=== PATIENT | female | born 1990 | race African-American/Black ===

== ENCOUNTER 2019-03-20 18:09 | Emergency (ER) | payer MEDICAID ==
[~2019-03-20] VITALS: Ht 162.6 cm; Wt 92.6 kg
[2019-03-20] MEDS ORDERED: ONDANSETRON 4MG ODT PO ONE (22:00)
[2019-03-20] MEDS ORDERED: ACETAMINOPHEN 325MG TABLET PO ONE (22:00)
[2019-03-20 23:29] LABS: CHLORIDE 105 mEq/L (98-107)
[2019-03-20 23:32] LABS: BASOPHILS % 0.6 % (0.0-2.0); EOSINOPHILS % 1.2 % (0.0-5.0); HEMOGLOBIN. 12.3 g/dL (12.0-16.0); LYMPHOCYTES % 15.8 % (20.0-50.0); MEAN CORPUSCULAR HEMOGLOBIN 30.7 pg (28.0-32.0); MEAN CORPUSCULAR VOLUME 89.5 fL (81.0-99.0); MEAN PLATELET VOLUME 9.1 fl (7.4-10.4); MONOCYTES % 6.9 % (2.0-8.0); NEUTROPHILS % 75.5 % (40.0-76.0); PLATELET 233 x1000/uL (130-400); RED BLOOD CELL COUNT 4.02 mill/uL (4.2-5.4); RED CELL DISTRIBUTION WIDTH 13.7 % (11.6-14.6)
[2019-03-20 23:53] LABS: B-HCG QUANTITATIVE 38476 mIU/mL (<3)
[2019-03-21 00:25] LABS: CLARITY URINE TURBID (CLEAR); COLOR URINE YELLOW (YELLOW); KETONES URINE 4+ (NEGATIVE); LEUKOCYTE ESTERASE URINE 1+ (NEGATIVE); NITRITE URINE NEGATIVE (NEGATIVE); OCCULT BLOOD URINE NEGATIVE (NEGATIVE); PH URINE 6.5 (4.5-8.0); PROTEIN URINE 1+ (NEGATIVE); SPECIFIC GRAVITY URINE 1.036 (1.005-1.030)
[2019-03-21 01:05] VITALS: BP 121/69
== END 2019-03-21 01:09 | disposition home or self-care (01) ==
LOC: ER 18:09
DX: O20.0 Threatened abortion (principal); O23.42 Unspecified infection of urinary tract in pregnancy, second trimester; O21.2 Late vomiting of pregnancy; Z3A.16 16 weeks gestation of pregnancy
CPT/HCPCS: 36415; 76805; 80053; 81003; 81025; 84702; 85025; 86850; 86900; 86901; 99284; Q0162

== ENCOUNTER 2019-08-28 21:11 | Observation (INO) | payer MEDICAID ==
[~2019-08-28] VITALS: Ht 162.6 cm; Wt 101.2 kg
[2019-08-28] MEDS ORDERED: PREN1TAB78 MT (22:11)
== END 2019-08-28 22:55 | disposition home or self-care (01) ==
LOC: 8 EST LDRP 21:11
PROVIDERS: ADMIT Obstetrics & Gynecology; ATTEND Obstetrics & Gynecology
DX: O26.893 Other specified pregnancy related conditions, third trimester (principal); R10.30 Lower abdominal pain, unspecified; O62.9 Abnormality of forces of labor, unspecified; Z3A.39 39 weeks gestation of pregnancy
CPT/HCPCS: 99281; G0378

== ENCOUNTER 2019-09-09 18:39 | Inpatient (IN) | payer MEDICAID ==
[~2019-09-09] VITALS: Ht 162.6 cm; Wt 104.3 kg
[~2019-09-09 18:39] MED LIST: PREN1TAB78 MT
[2019-09-09] MEDS ORDERED: MISOPROSTOL 200MCG TABLET VG SCH (22:15)
[2019-09-09] MEDS ORDERED: BUTORPHANOL TARTRATE 2 MG/ML VIAL IV PRN (22:15)
[2019-09-09] MEDS ORDERED: LIDOCAINE HCL 1% 20ML VIAL (Pyxis) INJ INFIL SCH (22:15)
[2019-09-09] MEDS ORDERED: METHYLERGONOVINE MALEATE 0.2 MG/ML IM PRN (22:15)
[2019-09-09] MEDS ORDERED: CARBOPROST TROMETHAMINE 250 MCG/ML AMPUL IM PRN (22:15)
[2019-09-09] MEDS: LACTATED RINGERS 1,000 ML IV SCH (22:33)
[2019-09-09 22:47] LABS: CLARITY URINE CLOUDY (CLEAR); COLOR URINE YELLOW (YELLOW); KETONES URINE TRACE (NEGATIVE); LEUKOCYTE ESTERASE URINE NEGATIVE (NEGATIVE); NITRITE URINE NEGATIVE (NEGATIVE); OCCULT BLOOD URINE NEGATIVE (NEGATIVE); PROTEIN URINE 1+ (NEGATIVE); SPECIFIC GRAVITY URINE 1.034 (1.005-1.030)
[2019-09-09 22:51] LABS: BASOPHILS % 0.7 % (0.0-2.0); EOSINOPHILS % 2.9 % (0.0-5.0); HEMATOCRIT. 31.5 % (36.0-48.0); HEMOGLOBIN. 10.1 g/dL (12.0-16.0); LYMPHOCYTES % 21.2 % (20.0-50.0); MEAN CORPUSCULAR HEMOGLOBIN 26.2 pg (28.0-32.0); MEAN CORPUSCULAR VOLUME 81.2 fL (81.0-99.0); MEAN PLATELET VOLUME 8.7 fl (7.4-10.4); MONOCYTES % 10.4 % (2.0-8.0); NEUTROPHILS % 64.8 % (40.0-76.0); PLATELET 194 x1000/uL (130-400); RED BLOOD CELL COUNT 3.87 mill/uL (4.2-5.4)
[2019-09-09 22:58] LABS: CHLORIDE 107 mEq/L (98-107)
[2019-09-09 22:58] LABS: *BENZODIAZEPINES SCREEN URINE NEGATIVE (NEGATIVE); *COCAINE SCREEN URINE NEGATIVE (NEGATIVE); CANNABINOID URINE SCREEN NEGATIVE (NEGATIVE); METHADONE URINE SCREEN NEGATIVE (NEGATIVE); OPIATES URINE SCREEN NEGATIVE (NEGATIVE); PHENCYCLIDINE URINE SCREEN NEGATIVE (NEGATIVE)
[2019-09-09] MEDS: MISOPROSTOL 100MCG TABLET VG PRN (22:58)
[2019-09-09 23:00] LABS: INR 0.9; PROTHROMBIN TIME 9.5 sec (9.6-11.0)
[2019-09-09 23:00] LABS: *AMPHETAMINES SCREEN URINE NEGATIVE (NEGATIVE); *BARBITURATES SCREEN URINE NEGATIVE (NEGATIVE)
[2019-09-09 23:29] LABS: HEPATITIS B SURFACE ANTIGEN NEGATIVE
[2019-09-09] MEDS ORDERED: PENICILLIN G POTASSIUM 5 MMU in DEXT 5% WATER 100 ML IV SCH (23:30)
[2019-09-10] MEDS: PENICILLIN G POTASSIUM 2.5 MMU in DEXTROSE 5% WATER 50 ML IV SCH ×2 (02:53→07:32)
[2019-09-10] MEDS: MISOPROSTOL 100MCG TABLET VG PRN (02:57)
[2019-09-10] MEDS: LACTATED RINGERS 1,000 ML IV SCH ×3 (04:00→15:14)
[2019-09-10] MEDS: DEXT 5%/LR + PITOCIN 20UNITS/L 1,000 ML IV SCH ×2 (10:18→17:52)
[2019-09-10] MEDS ORDERED: DIPHENHYDRAMINE 50MG/ML VIAL IV NR (11:30)
[2019-09-10] MEDS ORDERED: BUPIVACAINE HCL/PF 0.25% (2.5MG/ML) 10ML ONE (13:35)
[2019-09-10] MEDS ORDERED: EPHEDRINE SULFATE 50MG/ML VIAL ONE (13:35)
[2019-09-10] MEDS ORDERED: FENTANYL CITRATE/PF 50MCG/ML 2ML VIAL ONE (13:35)
[2019-09-10] MEDS ORDERED: SODIUM CHLORIDE 0.9% 10ML VIAL ONE (13:35)
[2019-09-10] MEDS ORDERED: ROPIVACAINE HCL 2MG/ML (0.2%) 200ML BOTTLE IR ONE (14:30)
[2019-09-10] MEDS ORDERED: ROPIVACAINE HCL/PF EPIDURAL 200 ML EPI NR (14:36)
[2019-09-10 16:12] LABS: BASOPHILS % 0.7 % (0.0-2.0); HEMATOCRIT. 33.5 % (36.0-48.0); HEMOGLOBIN. 10.8 g/dL (12.0-16.0); MEAN CORPUSCULAR HEMOGLOBIN 26.1 pg (28.0-32.0); MEAN CORPUSCULAR VOLUME 81.1 fL (81.0-99.0); MEAN PLATELET VOLUME 8.9 fl (7.4-10.4); MONOCYTES % 10.6 % (2.0-8.0); NEUTROPHILS % 71.7 % (40.0-76.0); PLATELET 199 x1000/uL (130-400); RED BLOOD CELL COUNT 4.13 mill/uL (4.2-5.4)
[2019-09-10 16:12] LABS: CLARITY URINE CLEAR (CLEAR); COLOR URINE YELLOW (YELLOW); KETONES URINE NEGATIVE (NEGATIVE); LEUKOCYTE ESTERASE URINE NEGATIVE (NEGATIVE); NITRITE URINE NEGATIVE (NEGATIVE); OCCULT BLOOD URINE TRACE (NEGATIVE); PROTEIN URINE NEGATIVE (NEGATIVE); SPECIFIC GRAVITY URINE 1.005 (1.005-1.030); UROBILINOGEN URINE 0.2 E.U./dL (0.2-1.0)
[2019-09-10 16:19] LABS: CHLORIDE 107 mEq/L (98-107)
[2019-09-10 16:27] LABS: D-DIMER 1.39 mg/L FEU (<0.50); INR 0.9; PARTIAL THROMBOPLASTIN TIME 27.1 sec (23.4-31.0); PROTHROMBIN TIME 9.6 sec (9.6-11.0)
[2019-09-10] MEDS ORDERED: DEXT 5%/LR + PITOCIN 20UNITS/L 1,000 ML IV SCH (16:30)
[2019-09-10] MEDS ORDERED: IBUPROFEN 400MG TABLET PO PRN (16:30)
[2019-09-10] MEDS ORDERED: RHO(D) IMMUNE GLOBULIN 300 MCG/SYR IM PRN (16:30)
[2019-09-10] MEDS ORDERED: BENZOCAINE/LANOLIN/ALOE VERA SPRAY TOP PRN (16:30)
[2019-09-10 18:40] VITALS: BP 122/78
[2019-09-10 20:00] VITALS: BP 111/63
[2019-09-10 20:12] VITALS: BP 111/63
[2019-09-10] MEDS: IBUPROFEN 800MG TABLET PO PRN (20:12)
[2019-09-11] VITALS: BP_SYST 112; BP_DIAS 64; BP_DIAS 65
[2019-09-11] MEDS: IBUPROFEN 800MG TABLET PO PRN (02:30)
[2019-09-11 08:00] VITALS: BP 129/76
[2019-09-11 08:39] LABS: BASOPHILS % 0.6 % (0.0-2.0); EOSINOPHILS % 2.5 % (0.0-5.0); HEMOGLOBIN. 9.9 g/dL (12.0-16.0); MEAN CORPUSCULAR HEMOGLOBIN 26.8 pg (28.0-32.0); MEAN CORPUSCULAR VOLUME 81.1 fL (81.0-99.0); MEAN PLATELET VOLUME 8.7 fl (7.4-10.4); MONOCYTES % 9.7 % (2.0-8.0); NEUTROPHILS % 65.2 % (40.0-76.0); PLATELET 192 x1000/uL (130-400); RED CELL DISTRIBUTION WIDTH 17.9 % (11.6-14.6)
[2019-09-11 16:00] VITALS: BP 110/73
[2019-09-11 19:40] VITALS: BP 107/62
[2019-09-12 04:00] VITALS: BP 101/62
[2019-09-12 08:00] VITALS: BP 112/80
== END 2019-09-12 12:24 | disposition home or self-care (01) | DRG 560 ==
LOC: OB TRIAGE 18:39 → OBSVTOIN 18:39 → 8 EST LDRP 22:17 → 8EST 09-10 21:00
PROVIDERS: ADMIT Obstetrics & Gynecology; ATTEND Obstetrics & Gynecology
PROC: 10E0XZZ Delivery of Products of Conception, External Approach (ICD-10-PCS; principal; 2019-09-10)
PROC: 3E0P7VZ Introduction of Hormone into Female Reproductive, Via Natural or Artificial Opening (ICD-10-PCS; 2019-09-10)
PROC: 3E0R3BZ Introduction of Anesthetic Agent into Spinal Canal, Percutaneous Approach (ICD-10-PCS; 2019-09-10)
PROC: 00HU33Z Insertion of Infusion Device into Spinal Canal, Percutaneous Approach (ICD-10-PCS; 2019-09-10)
DX: O41.03X0 Oligohydramnios, third trimester, not applicable or unspecified (principal); D64.9 Anemia, unspecified; O48.0 Post-term pregnancy; Z3A.41 41 weeks gestation of pregnancy; Z37.0 Single live birth
CPT/HCPCS: 36415; 76805; 76818; 80305; 81003; 84550; 85379; 85384; 86592; 86703; 86762; 86850; 86900; 87340; 99281; J0595; J1200; J2540; J2590; J2795; J3010; J3490; J7060; A4315